=== PATIENT | female | born 1975 | race Caucasian/White ===

== ENCOUNTER → 2017-06-24 | Outpatient (CLI) | payer OTHER ==
--- NOTE | 2017-06-24 13:44 | RAD ---
Indication right upper quadrant pain. Grayscale imaging was performed. Examination was targeted to the right upper quadrant. Note is made of a previous complete abdominal ultrasound examination 3 years ago. The pancreas is poorly visualized and largely obscured by gas. There is hepatomegaly. Additionally there is increased attenuation of the ultrasound beam by the liver compatible with fatty infiltration. A focal mass lesion is not seen in the visualized liver. The gallbladder appeared normal. The common bile duct diameter of approximately 4 mm is normal. The right kidney was not optimally visualized but appear grossly normal. The inferior vena cava and abdominal aorta, similar to the pancreas, were largely obscured by gas. IMPRESSION: Hepatomegaly and fatty infiltration of the liver. Midline structures largely obscured
== END | disposition home or self-care (01) ==
LOC: US 12:24
PROVIDERS: ATTEND Physician Assistant
DX: K76.0 Fatty (change of) liver, not elsewhere classified (principal)
CPT/HCPCS: 76705

== ENCOUNTER → 2017-08-13 | Outpatient (CLI) | payer OTHER ==
--- NOTE | 2017-08-13 14:18 | KCIC ---
MRI of the thoracic spine without contrast 08/13/2017 CLINICAL HISTORY: Thoracic compression deformity seen on recent radiographs of the thoracic spine. TECHNIQUE: Unenhanced T1-weighted, T2-weighted and inversion recovery sagittal and T1-weighted and T2-weighted axial images of the thoracic spine were obtained. Additionally T2-weighted sagittal images of the cervical, thoracic and lumbar spine were obtained for localization purposes. FINDINGS: Comparison is made to radiographs of the thoracic spine dated 08/07/2017. Mild S-shaped curvature of the thoracolumbar spine is seen. There is accentuation of the normal thoracic kyphosis. Degenerative signal changes are seen involving all of the disks of the thoracic spine. Degenerative signal changes are seen within the marrow surrounding these discs. There is no MRI evidence of an acute compression fracture involving the thoracic vertebra. The thoracic spinal cord is normal in position and signal characteristics. On the axial images relatively mild degenerative changes are seen involving the mid and lower thoracic disc spaces. These consist of minimal to mild generalized disc bulges, small superimposed focal disc protrusions and degenerative changes involving the facet joints. These findings do not result in significant central spinal canal or neural foraminal stenosis at any level. IMPRESSION: Relatively mild degenerative changes are seen involving the thoracic spine as outlined above. These findings do not result in significant central spinal canal or neural foraminal stenosis at any level. There is no MRI evidence of an acute compression fracture involving the thoracic vertebrae. Electronically signed by: Dominic Leo MD (08/13/2017 2:15 PM) [id number]
== END | disposition home or self-care (01) ==
LOC: KCIC MRI 10:25
PROVIDERS: ATTEND Family Medicine
DX: M48.54XA Collapsed vertebra, not elsewhere classified, thoracic region, initial encounter for fracture (principal)
CPT/HCPCS: 72146

== ENCOUNTER → 2019-02-02 | Outpatient (CLI) | payer OTHER ==
--- NOTE | 2019-02-02 17:39 | KCIC ---
Bilateral diagnostic digital mammograms: Reason for examination: Right breast lump. Comparison is made to previous studies dated 06/18/2013 and 10/31/2011. Interpretation was made with the benefit of CAD. The skin and nipples show no abnormalities. No abnormal axillary lymph nodes are seen. The breast parenchyma shows scattered fibroglandular density. (Breast density: Category B.) There is a lymph node at the 10:00 position posteriorly in the right breast which has been seen on previous examinations dating back to 2011 and corresponds to the lymph node seen on previous ultrasound examination. There are no other new dominant masses, suspicious calcifications or architectural distortions. Impression: No evidence of malignancy. Recommend routine screening. BI-RADS Category 2: Benign. "Our facility is accredited by the [employer] Mammography Program." This patient's information has been entered into a reminder system for the patient to be notified with the results of her examination and a target date for the next mammogram. Electronically signed by: Shiela De Los Santos MD (02/02/2019 5:36 PM) [id number]
== END | disposition home or self-care (01) ==
LOC: KCIC MAMMO 12:45
PROVIDERS: ATTEND Physician Assistant Medical
DX: N63.10 Unspecified lump in the right breast, unspecified quadrant (principal)
CPT/HCPCS: 77066